=== PATIENT | male | born 1975 | race African-American/Black ===

== ENCOUNTER 2021-12-14 18:55 | Inpatient (IN) | payer OTHER, SELFPAY ==
[2021-12-14] VITALS (23 sets, daily range): BP systolic 119–155; BP diastolic 75–112; PULSE 111–120; RESP 16–65; TEMP 36.8; O2SAT 85–100
--- NOTE | ~2021-12-14 | CT_ITS ---
EXAMINATION: CTA abdomen pelvis DATE: 12/15/2021 17:28 INDICATION: EPIGASTRIC PAIN. R/O EMBOLUS. TECHNIQUE: Computed tomography (CT) of the abdomen and pelvis was performed with 100 mL Omnipaque-300 intravenous contrast. Automated exposure control and iterative reconstruction technique were employe d. The dose-length product was 1391.79 mGy-cm. Maximum intensity projections and 3-D reconstructions of the arteries were created by the technologist on a separate workstation COMPARISON: None. FINDINGS: Lower thorax: Redemonstration of multiple possible pulmonary arterial filling defects. Moderate bilat eral pleural effusions. Liver: Steatosis. Biliary/Gallbladder: Gallbladder is normal. No bile duct dilation. Pancreas: No mass or duct dilation. Spleen: Normal. Adrenals:No mass. Kidneys: No mass, stone, or hydronephrosis. Moderate bilateral perinephric stranding. GI tract: No small or large bowel dilation. Normal appendix. Diverticulosis without diverticulitis. Mesentery/Peritoneum: No ascites, mass, or free air. Retroperitoneum: No mass. No significant atherosclerotic calcification. No abdominal arterial aneurys m, dissection, or occlusion. No significant stenosis. No arterial embolus. Pelvis: Distended bladder with wall thickening, likely secondary to outlet compromise from prostatome verenice. Soft Tissues: Soft tissues and body wall unremarkable. Bones: No acute osseous finding. IMPRESSION: Normal angiographic findings in the abdomen, no evidence of arterial embolus. Reviewed, dictated and finalized at location K.
--- NOTE | ~2021-12-14 | CT_ITS ---
EXAMINATION: CTA chest PE protocol DATE: 12/14/2021 20:50 INDICATION: elevated d dimer TECHNIQUE: Computed tomography angiography (CTA) of the chest was performed with 100 mL Omnipaque-350 intravenous contrast timed to evaluate the pulmonary arteries. Coronal maximum intensity projection 3D-reconstructions were created by the technologist. The dose-length product (DLP) was 1113.48 mGy-cm . Automated exposure control and iterative reconstruction technique were employed. COMPARISON: None. FINDINGS: Study quality: Degraded by beam hardening artifact, respiratory motion, phase of contrast, and persis tent beam hardening artifact and phase/volume contrast issues in the repeat attempt, such that subseg mental and non-occlusive segmental emboli could be missed. Pulmonary arteries: Multiple nonocclusive segmental and subsegmental emboli are likely present bilate rally and involving all lobes. Thoracic aorta: Normal. Lung parenchyma and airways: Multifocal patchy groundglass opacities in the central upper lungs. Righ t basilar atelectasis. Thoracic inlet, axillae and chest wall: Bilateral gynecomastia, otherwise unremarkable. Mediastinum: Prominent bilateral hilar lymph nodes, larger on the right. Heart and pericardium: RV/LV ratio is 1.0. No pericardial effusion. Coronary artery calcifications: Absent. Pleura: Large volume bilateral pleural effusions. Upper abdomen: No significant finding. Bones: No acute osseous finding. IMPRESSION: Limited exam as described above. Within those constraints, CT findings are concerning for bilateral n onocclusive segmental and subsegmental emboli. Large clot burden is suspected. RV/LV ratio is 1 indic ating right heart strain. Large volume bilateral pleural effusions. Pulmonary opacities may reflect e dunia, infection, or sarcoid-related change. Results reported telephonically to Dr. England by Dr. Chavez at 9:40 PM on 12/14/2021. Reviewed, dictated and finalized at location K. IMPRESSION: Limited exam as described above. Within those constraints, CT findings are conc erning for bilateral nonocclusive segmental and subsegmental emboli. Large clot burden is suspected. RV/LV ratio is 1 indicating right heart strain. Large vol ume bilateral pleural effusions. Pulmonary opacities may reflect edema, infecti on, or sarcoid-related change. Results reported telephonically to Dr. England by Dr. Chavez at 9:40 PM on 12/14.
--- NOTE | ~2021-12-14 | XR_ITS ---
EXAMINATION: XR chest 1V portable Exam Date/Time: 12/14/2021 19:20 CDT HISTORY: SOB Comparison: None available. RESULT: Lines, tubes, and devices: None. Lungs and pleura: Diffuse reticular pattern, with indistinct vascular margins. Possible minimal bila teral costophrenic angle blunting. Cardiomediastinal silhouette: Stable cardiomediastinal silhouette. Other: No acute osseous or upper abdominal finding. IMPRESSION: Pulmonary findings may reflect pulmonary edema. Possible trace bilateral effusions. Infection not exc luded. Reviewed, dictated and finalized at location K. IMPRESSION: Pulmonary findings may reflect pulmonary edema. Possible trace bilateral effusi ons. Infection not excluded.
--- NOTE | 2021-12-14 19:11 | ED.ASTHMA ---
HPI - Asthma General Chief Complaint: Asthma Stated Complaint: SOB, HX ASTHMA Time Seen by Provider: 12/14/21 19:05 History of Present Illness HPI Narrative: 46-year-old male with history of asthma presenting to the emergency department for evaluation of worsening shortness of breath over the last 2 to 3 days. Patient states that today was the worst today. Patient did attempt his albuterol nebulizer without significant improvement. Patient reports some chest tightness and shortness of breath. Patient denies any chest pain. Patient has history of sarcoid. patient is non-smoker. Patient does have a longstanding history of asthma. Patient states his last asthma hospitalization was as a child. Patient denies ever needing to be intubated. Patient reports he is vaccinated against COVID and denies any recent COVID exposure. Related Data Home Medications Medication Instructions Recorded Confirmed albuterol sulfate 90 mcg/actuation 2 puff inhalation Q4H PRN 12/14/21 aerosol inhaler Shortness Of Breath Or Wheezing atenolol 50 mg-chlorthalidone 25 1 tablet PO DAILY 12/14/21 mg tablet cholecalciferol (vitamin D3) 1,250 1 cap PO WEEKLY 12/14/21 mcg (50,000 unit) capsule fluticasone 250 mcg-salmeterol 50 1 ea inhalation BID 12/14/21 12/14/21 mcg/dose blistr powdr for inhalation (Advair Diskus) Allergies Allergy/AdvReac Type Severity Reaction Status Date / Time No Known Allergies Allergy Verified 12/14/21 20:30 Review of Systems Review of Systems: CONSTITUTIONAL: Denies fever, chills, or sweats. EYES: Denies visual changes, redness, or discharge. ENT: Denies rhinorrhea, congestion, sore throat, or otalgia. CARDIOVASCULAR: Denies chest pain, palpitations, or edema. RESPIRATORY: Worsening shortness of breath with some associated wheeze at home GASTROINTESTINAL: Denies abdominal pain, nausea, vomiting, or diarrhea. GENITOURINARY: Denies dysuria or hematuria. SKIN: Denies rash or itching. MUSCULOSKELETAL: Denies back pain, joint pain, or myalgia. NEUROLOGIC: Denies headache, numbness, or weakness. Exam Narrative: APPEARANCE: Anxious appearing HEAD: normocephalic, atraumatic. EYES: PERRLA/EOMI, conjunctivae clear. NOSE: Normal no drainage NECK: Supple. No adenopathy, no masses. RESPIRATORY: Minimal wheezing on exam. Respirations labored. CARDIOVASCULAR: Regular rate and rhythm without murmurs rubs or gallops. ABDOMINAL: Soft, nontender, nondistended, normal bowel sounds MUSCULOSKELETAL: Moves all extremities. Strength/ROM intact, No edema, No calf tenderness. NEURO: Alert. Cranial nerves II through XII intact. Grossly intact SKIN: Warm, dry. Normal Color Course Course Emergency Course: Patient's D-dimer was elevated at 2.63. CT was concerning for pulmonary embolism. Radiology states that this was a technically limited study. Patient has no contraindications to heparin. Patient was started on heparin bolus and infusion. Patient also has a significant elevated BNP. No elevation in his troponin. Patient does have an elevated bated hemoglobin at 19.6. Patient was discussed with the hospitalist and patient was accepted for admission. Suspect polycythemia at this time, patient will have inpatient evaluation by heme-onc. Patient admitted to IMU. Patient was updated on the results of the work-up and plan for treatment. All questions and concerns were addressed. Patient was stable at time of admission. Vital Signs Vital signs: Vital Signs Temperature 98.2 F 12/14/21 19:00 Pulse Rate 115 H 12/14/21 19:00 Respiratory Rate 22 H 12/14/21 19:00 Blood Pressure 132/85 12/14/21 19:00 Pulse Oximetry 85 L 12/14/21 19:00 Oxygen Delivery Room Air 12/14/21 19:00 Temperature 98.2 F 12/14/21 19:00 Pulse Rate 117 H 12/14/21 22:15 Respiratory Rate 21 H 12/14/21 22:15 Blood Pressure 122/80 12/14/21 22:15 Pulse Oximetry 95 12/14/21 22:15 Oxygen Delivery Room Air 12/14/21 19:00 Oxygen
[2021-12-14] MEDS: methylPREDNISolone SOD SUCC 125 MG VIAL IV PUSH (19:22)
[2021-12-14] MEDS: MAGNESIUM SULF 1 GM/D5W 100 ML 1 GM/100 ML BAG IVPB (19:24)
[2021-12-14 19:28] LABS: Basophils Percent Auto 0.8 % (0.2-1.2); Eosinophils Percent Auto 0.6 % (0-4.4); Hemoglobin 19.6 g/dL (14.0-18.0); Immature Granulocyte Absolute 0.03 K/mm3 (0.00-0.031); Immature Granulocyte Percent A 0.8 % (0-0.5); Lymphocytes Absolute Auto 1.33 K/mm3 (0.9-3.2); Lymphocytes Percent Auto 36.9 % (18.3-44.2); Mean Corpuscular HGB Conc 33.2 g/dl (32-36); Mean Corpuscular Hemoglobin 28.9 pg (26-34); Mean Corpuscular Volume 86.9 fl (80-100); Mean Platelet Volume 12.4 fl (7.4-10.4); Monocytes Percent Auto 55.6 % (2.6-8.5); Neutrophils Absolute Auto 0.2 K/mm3 (1.3-6.7); Neutrophils Percent Auto 5.3 % (45.5-73.1); Platelet Count Result 121 k/mm3 (150-375); Red Blood Count 6.79 M/mm3 (4.6-6.20); Red Cell Distribution Width 13.6 % (11.5-14.5); White Blood Count 3.6 K/mm3 (4.5-10.0)
[2021-12-14] MEDS: IPRATROPIUM BR 0.02% INH SOLN 0.5 MG/2.5 ML VIAL 2 MG INHALATION (19:29)
[2021-12-14] MEDS: ALBUTEROL SULFATE NEB 2.5 MG/3 ML INH 10 MG INHALATION (19:29)
[2021-12-14 19:37] LABS: Alanine Aminotransferase 24 U/L (6-50); Albumin Level 4.1 g/dL (3.5-5.1); Alkaline Phosphatase 66 U/L (38-126); Anion Gap 11 mmol/L (8-16); Aspartate Amino Transferase 26 U/L (17-59); Bilirubin,Total 0.9 mg/dL (0.2-1.3); Blood Urea Nitrogen 37 mg/dL (9-20); Calcium 8.7 mg/dL (8.4-10.2); Carbon Dioxide 28 mmol/L (22-30); Chloride 95 mmol/L (98-107); Estimated CRCL calculation 58 ml/min; Estimated Glomerular Filt Rate 50; Glucose 153 mg/dL (65-110); Potassium 3.5 mmol/L (3.4-5.0); Sodium 134 mmol/L (137-145)
[2021-12-14 20:01] LABS: D Dimer 2.63 ug/mL (<0.48)
[2021-12-14 20:15] LABS: NT Pro B Type Natriuretic Pept 2240 pg/mL (5-100); Troponin I 0.015 ng/mL (0.000-0.034)
--- NOTE | 2021-12-14 20:17 | ECG_ITS ---
Measurements Intervals [place] Rate: 115 P: 43 DE: 139 QRS: 29 QRSD: 86 T: 17 QT: 315 QTc: 437 Interpretive Statements SINUS TACHYCARDIA NONSPECIFIC T-WAVE ABNORMALITY- INFERIOR LEADS BASELINE ARTIFACT- I, II, III ABNORMAL ECG Electronically Signed On 12-15-2021 7:34:49 CDT by Nakul Lozano D.O.
[2021-12-14 20:37] LABS: SARS-CoV-2 RNA PCR Negative
--- NOTE | 2021-12-14 21:47 | PM.IMHP ---
H&P: HPI History of Present Illness Date/Time: 12/14/21 21:47 Chief Complaint: epigastric pain Narrative: this is a 46-year-old male with past medical history significant for psycho it in remission, asthma. patient presents to the emergency room due to pain with deep inspiration and pain in the epigastric area worse with deep inspiration. Patient denies any cough, any hematemesis, any hemoptysis, no nausea, no vomiting, no diarrhea, has had some shortness of breath, no fevers, no rigors, no chills no calves pain,patient has been feeling like this for the last 2 days or so he initially attributed to eating some takeout food at his job. preliminary workup was significant for CT angiogram of the chest with acute pulmonary embolism, is CT of abdomen and pelvis show no acute abnormality, lab work was significant for hemoglobin of 19 hematocrit 59, BUN 37 creatinine 1.8 brain atretic peptide was 2240. patient is being admitted for further evaluation, management and treatment. Review of Systems Review of Systems: Epigastric pain, shortness of breath. Constitutional: Constitutional: Denies body ache(s), Denies chills, Denies fatigue, Denies fever(s), Denies malaise, Denies night sweats and Denies weakness Eyes: Eyes: Denies change in vision ENT: Denies dysphagia, Denies vertigo, Denies dizziness, Denies nasal congestion, Denies nasal discharge, Denies nasal obstruction, Denies odynophagia and Denies disequilibrium Cardiovascular: Cardiovascular: Denies chest pain, Denies syncope, Denies pedal edema, Denies edema, Denies irregular heart rhythm, Denies leg edema, Denies lightheadedness, Denies radiating jaw, neck or arm pain, Denies palpitations, Reports dyspnea and Reports dyspnea on exertion Respiratory: Respiratory: Denies cough and Reports pain on inspiration Gastrointestinal: Gastrointestinal: Reports abdominal pain ( epigastric), Denies dyspepsia and Denies heartburn Genitourinary: Genitourinary: Denies dysuria Musculoskeletal: Musculoskeletal: Denies arthralgias, Denies joint swelling and Denies muscle weakness Integumentary/Breasts: Skin/Breast: Denies rash Neurologic: Denies vertigo, Denies dizziness, Denies focal weakness and Denies Sensory deficit (Neuro) Psychiatric: Psychiatric: Reports no additional psychiatric complaints and Reports as per HPI Endocrine: Endocrine: Denies cold intolerance, Denies fatigue, Denies flushing, Denies heat intolerance, Denies polyphagia, Denies polydipsia and Denies palpitations Allergic/Immunologic: Allergic/Immunologic: Reports no additional allergic/immunologic complaints and Reports as per HPI [facility] Family History Family History (Updated 12/15/21 @ 00:35 by Rosamaria Juan RN) Sibling Hypertension Mother Hypertension Social History Social History Second hand tobacco smoke exposure: Yes Alcohol intake: current Drinks per week: 3 Substance use: never Spiritual care concerns: No Meds Home Medications and Allergies Home Medications Medication Instructions Recorded Confirmed Type albuterol sulfate 90 mcg/actuation 2 puff inhalation Q4H PRN 12/14/21 12/15/21 History aerosol inhaler Shortness Of Breath Or Wheezing atenolol 50 mg-chlorthalidone 25 1 tablet PO DAILY 12/14/21 12/15/21 History mg tablet cholecalciferol (vitamin D3) 1,250 1 cap PO WEEKLY 12/14/21 12/15/21 History mcg (50,000 unit) capsule fluticasone 250 mcg-salmeterol 50 1 ea inhalation BID 12/14/21 12/14/21 History mcg/dose blistr powdr for inhalation (Advair Diskus) Nitrous Oxide 2 tablet PO DAILY 12/15/21 12/15/21 History boron 6 mg tablet 6 mg PO DAILY 12/15/21 12/15/21 History Allergies Allergy/AdvReac Type Severity Reaction Status Date / Time No Known Allergies Allergy Verified 12/14/21 20:30 Vital Signs Vital Signs - 24 hr 12/14/21 19:00 12/14/21 19:02 12/14/21 19:03 Temperature 98.2 F Pulse Rate 115 H 114 H Respiratory Rate 22 H 22 H 20
[2021-12-14] MEDS: HEPARIN SODIUM 5,000 UNITS/ML VIAL 8500 UNITS IV PUSH (22:26)
[2021-12-14] MEDS: HEPARIN SOD/D5W 100 UNITS/ML 25,000 UNITS/250 ML BAG 15 UNITS IV CONT (22:27)
[2021-12-15] VITALS (26 sets, daily range): BP systolic 115–139; BP diastolic 68–93; PULSE 89–123; RESP 18–32; TEMP 35.9–37.1; O2SAT 90–97; BMI 34.4
--- NOTE | 2021-12-15 | ECHO_ITS ---
Patient Info Name: Brian Davey Age: 46 years : 1975 Gender: Male Ht: 71 in Wt: 229 lbs BSA: 2.31 m2 HR: 83 bpm BP: 128 / 86 mmHg Exam Date: 12/15/2021 8:14 AM Exam Location: [facility] Patient Status: Outpatient Admit Date: 12/14/2021 Staff Ordering Physician: Nel Sylvester MD Public Bath Attendant: Felix Ace, JEANNE, RT Attending Provider: Nel Sylvester MD Referring Physician: Higinio CANTRELL; Exam Type: CA echo doppler color flow Study Info Indications I26.99 - Other pulmonary embolism without acute cor pulmonale Complete two-dimensional, color flow and Doppler transthoracic echocardiogram is performed. Strain analysis performed. Summary 1. Complete two-dimensional, color flow and Doppler transthoracic echocardiogram is performed. 2. Left ventricular chamber dimension is normal. 3. Left ventricular systolic function is normal, estimated at 65-70%. 4. There is mildly increased left ventricular wall thickness. 5. The left ventricular diastolic function is grade I diastolic dysfunction. 6. Right ventricular chamber dimension is normal. 7. Right ventricular systolic function is normal. 8. Left atrial chamber dimension is normal. 9. Right atrial chamber dimension is normal. Left Ventricle Left ventricular chamber dimension is normal. Left ventricular systolic function is normal, estimated at 65-70%. There is mildly increased left ventricular wall thickness. Left ventricular septal wall motion is normal. The left ventricular diastolic function is grade I diastolic dysfunction. Right Ventricle Right ventricular chamber dimension is normal. Right ventricular systolic function is normal. Left Atria Left atrial chamber dimension is normal. Right Atria Right atrial chamber dimension is normal. Aortic Valve The aortic valve is trileaflet. There is no aortic valve sclerosis. There is no aortic valve stenosis. There is no aortic valve regurgitation. Pulmonic Valve The pulmonic valve is normal. There is no pulmonic valve stenosis. There is no pulmonic regurgitation. Mitral Valve The mitral valve has normal leaflets. There is no mitral valve stenosis. There is no mitral valve regurgitation. Tricuspid Valve The tricuspid valve leaflets are normal. There is no significant tricuspid valve stenosis. There is no tricuspid valve regurgitation. Pericardium/Pleural The pericardium appears normal. There is no pericardial effusion. Aorta The aortic root size at the sinus of Valsalva is normal. The prox ascending aorta size is normal. Left Ventricular Outflow Tract Name Value Normal LVOT 2D LVOT Diameter 2.3 cm LVOT Doppler LVOT Peak Gradient 3 mmHg LVOT Mean Gradient 2 mmHg LVOT VTI 12 cm LVOT VTI/AV VTI Ratio 0.9 LVOT Stroke Volume 50 ml LVOT CO 5.4 l/min LVOT CI 2.3 l/min/m2 Mitral Valve
[2021-12-15 00:07] LABS: INR 1.2; Partial Thromboplastin Time 29.1 SECONDS (22.3-36.8); Prothrombin Time 14.3 Seconds (11.1-14.7)
--- NOTE | 2021-12-15 00:43 | PC.NURSE ---
This patient, Brian Davey, was admitted to IMU Room 211-01. Patient/family oriented to hospital policies and general routines including ID bracelet, bed and alarms, visiting hours, pain management, procedures, bathroom and other care routines, personal items, smoking policy, room service/diet, and visiting hours. Information on how to activate the Rapid Response Team has been discussed. Patient/Family are encouraged to report perceived risks to care and to ask questions if they do not understand what they are told or what they should do.
[2021-12-15] MEDS: traMADol HCL (*CRX) 50 MG TABLET PO ×2 (04:12→12:25)
[2021-12-15 05:25] LABS: Basophils Percent Auto 0.7 % (0.2-1.2); Hematocrit 56.1 % (42.0-52.0); Hemoglobin 18.9 g/dL (14.0-18.0); Lymphocytes Absolute Auto 0.68 K/mm3 (0.9-3.2); Lymphocytes Percent Auto 46.3 % (18.3-44.2); Mean Corpuscular HGB Conc 33.7 g/dl (32-36); Mean Corpuscular Hemoglobin 29.1 pg (26-34); Mean Corpuscular Volume 86.4 fl (80-100); Mean Platelet Volume 12.5 fl (7.4-10.4); Monocytes Absolute Auto 0.7 K/mm3 (0.1-0.6); Monocytes Percent Auto 44.9 % (2.6-8.5); Neutrophils Absolute Auto 0.1 K/mm3 (1.3-6.7); Neutrophils Percent Auto 8.1 % (45.5-73.1); Platelet Count Result 115 k/mm3 (150-375); Red Blood Count 6.49 M/mm3 (4.6-6.20); Red Cell Distribution Width 13.6 % (11.5-14.5)
[2021-12-15 05:29] LABS: White Blood Count 1.5 K/mm3 (4.5-10.0)
[2021-12-15 05:31] LABS: Partial Thromboplastin Time 80.3 SECONDS (22.3-36.8)
[2021-12-15 05:32] LABS: Anion Gap 11 mmol/L (8-16); Blood Urea Nitrogen 38 mg/dL (9-20); Calcium 8.6 mg/dL (8.4-10.2); Carbon Dioxide 24 mmol/L (22-30); Chloride 95 mmol/L (98-107); Estimated CRCL calculation 71 ml/min; Estimated Glomerular Filt Rate > 60; Glucose 196 mg/dL (65-110); Potassium 3.7 mmol/L (3.4-5.0); Sodium 130 mmol/L (137-145)
[2021-12-15] MEDS: IPRATROPIUM BR 0.02% INH SOLN 0.5 MG/2.5 ML VIAL INHALATION ×3 (08:41→20:46)
[2021-12-15] MEDS: ALBUTEROL SULFATE NEB 2.5 MG/3 ML INH INHALATION ×3 (08:41→20:46)
[2021-12-15] MEDS: FLUTICASONE/SALMETEROL 115-21 MCG INHALER 1 PUFF 2 PUFF INHALATION ×2 (08:41→20:47)
[2021-12-15] MEDS: atenoloL 50 MG TABLET PO (08:56)
[2021-12-15] MEDS: CHLORTHALIDONE 25 MG TABLET PO (08:56)
[2021-12-15 09:55] LABS: Basophils Percent Auto 0.4 % (0.2-1.2); Hematocrit 52.4 % (42.0-52.0); Hemoglobin 17.8 g/dL (14.0-18.0); Lymphocytes Absolute Auto 0.93 K/mm3 (0.9-3.2); Lymphocytes Percent Auto 35.9 % (18.3-44.2); Mean Corpuscular Hemoglobin 29.1 pg (26-34); Mean Corpuscular Volume 85.6 fl (80-100); Mean Platelet Volume 12.9 fl (7.4-10.4); Monocytes Absolute Auto 1.5 K/mm3 (0.1-0.6); Monocytes Percent Auto 58.7 % (2.6-8.5); Neutrophils Absolute Auto 0.1 K/mm3 (1.3-6.7); Platelet Count Result 124 k/mm3 (150-375); Red Blood Count 6.12 M/mm3 (4.6-6.20); Red Cell Distribution Width 13.1 % (11.5-14.5); White Blood Count 2.6 K/mm3 (4.5-10.0)
--- NOTE | 2021-12-15 13:43 | PM.IMPN ---
Progress Note: A&P Assessment and Plan (1) Pulmonary embolism: Code(s): I26.99 - Other pulmonary embolism without acute cor pulmonale Status: Acute Assessment and Plan: IV heparin (2) Erythrocytosis: Code(s): D75.1 - Secondary polycythemia Status: Acute Assessment and Plan: ? Etiology Denies obstructive sleep apnea. (3) Epigastric abdominal pain: Code(s): R10.13 - Epigastric pain Status: Acute Assessment and Plan: Likely pleuritic chest pain. (4) Asthma: Code(s): J45.909 - Unspecified asthma, uncomplicated Status: Acute Assessment and Plan: IV Solu-Medrol, bronchodilators. Subjective Date/time seen: 12/15/21 13:43 Still having shortness of breath. Still requiring nasal cannula oxygen Exam Narrative: General: alert and oriented Psych: appropriate mood nad affect Eyes: PERRLA Neck: Trachea midline, no new lesions Skin: no changes Lungs: Minimal wheeze Cardiac: Normal S1,S2, no MGR ABD: soft, nd, nt, nbs Ext: no new lesions, no cce Vasc: Pulses intact Objective Data Vital Signs Vital Signs: Vital Signs - 24 hr 12/14/21 19:00 12/14/21 19:02 12/14/21 19:03 Temperature 98.2 F Pulse Rate 115 H 114 H Respiratory Rate 22 H 22 H 20 Blood Pressure 132/85 Pulse Oximetry 85 L 88 L 94 Oxygen Delivery Room Air Oxygen Flow Rate 2 4 12/14/21 19:30 12/14/21 20:29 12/14/21 19:08 Temperature Pulse Rate 115 H 113 H 114 H Respiratory Rate 19 23 H Blood Pressure 119/86 Pulse Oximetry 98 Oxygen Delivery Oxygen Flow Rate 12/14/21 19:09 12/14/21 19:15 12/14/21 19:30 Temperature Pulse Rate 114 H 117 H 112 H Respiratory Rate 23 H 24 H 38 H Blood Pressure Pulse Oximetry 97 97 96 Oxygen Delivery Oxygen Flow Rate 12/14/21 19:45 12/14/21 20:00 12/14/21 20:01 Temperature Pulse Rate 115 H 111 H 115 H Respiratory Rate 20 22 H 21 H Blood Pressure 125/99 H Pulse Oximetry 98 100 Oxygen Delivery Oxygen Flow Rate 12/14/21 20:15 12/14/21 19:35 12/14/21 20:30 Temperature Pulse Rate 117 H 117 H Respiratory Rate 35 H 43 H Blood Pressure Pulse Oximetry 100 95 Oxygen Delivery Oxygen Flow Rate 4 12/14/21 20:51 12/14/21 20:52 12/14/21 21:00 Temperature Pulse Rate 119 H 120 H 119 H Respiratory Rate 31 H 18 22 H Blood Pressure 132/75 Pulse Oximetry 87 L 90 94 Oxygen Delivery Oxygen Flow Rate 12/14/21 21:01 12/14/21 21:15 12/14/21 21:41 Temperature Pulse Rate 117 H 116 H Respiratory Rate 16 23 H 65 H Blood Pressure 155/112 H Pulse Oximetry 94 95 Oxygen Delivery Oxygen Flow Rate 12/14/21 21:45 12/14/21 22:00 12/14/21 22:15 Temperature Pulse Rate 118 H 114 H 117 H Respiratory Rate 25 H 22 H 21 H Blood Pressure 122/80 Pulse Oximetry 97 95 95 Oxygen Delivery Oxygen Flow Rate 12/15/21 00:05 12/15/21 00:15 12/15/21 00:30 Temperature 96.6 F L Pulse Rate 119 H 120 H Respiratory Rate 22 H 20 Blood Pressure 129/93 H 126/80 Pulse Oximetry 94 95 95 Oxygen Delivery Nasal Cannula Oxygen Flow Rate 2.5 12/15/21 00:00 12/15/21 02:00 12/15/21 03:30 Temperature 98.2 F Pulse Rate 121 H 120 H 116 H Respiratory Rate 20 Blood Pressure 128/86 Pulse Oximetry 94 Oxygen Delivery Oxygen Flow Rate 12/15/21 03:45 12/15/21 04:00 12/15/21 08:00 Temperature 98.6 F Pulse Rate 123 H 100 Respiratory Rate 28 H Blood Pressure 124/86 Pulse Oximetry 94 90 Oxygen Delivery Nasal Cannula Oxygen Flow Rate 5 12/15/21 08:34 12/15/21 08:43 12/15/21 08:44 Temperature Pulse Rate 103 H 106 H 102 H Respiratory Rate 18 18 Blood Pressure Pulse Oximetry 96 Oxygen Delivery Nasal Cannula Oxygen Flow Rate 5 12/15/21 08:00 12/15/21 08:00 12/15/21 10:00 Temperature Pulse Rate 100 96 Respiratory Rate Blood Pressure Pulse Oximetry 94 Oxygen Delivery Nasal Cannula
[2021-12-15] MEDS: HEPARIN SOD/D5W 100 UNITS/ML 25,000 UNITS/250 ML BAG 15 UNITS IV CONT (16:26)
[2021-12-15] MEDS: methylPREDNISolone SOD SUCC 40 MG VIAL IV PUSH (16:27)
[2021-12-16] VITALS (23 sets, daily range): BP systolic 126–133; BP diastolic 77–90; PULSE 66–104; RESP 18–32; TEMP 36.7–37.6; O2SAT 92–98
[2021-12-16] MEDS: ZOLPIDEM TARTRATE (*CRX) 5 MG TABLET PO ×2 (00:39→21:05)
[2021-12-16] MEDS: IPRATROPIUM BR 0.02% INH SOLN 0.5 MG/2.5 ML VIAL INHALATION ×4 (02:10→20:49)
[2021-12-16] MEDS: ALBUTEROL SULFATE NEB 2.5 MG/3 ML INH INHALATION ×4 (02:10→20:49)
[2021-12-16 06:45] LABS: Anion Gap 3 mmol/L (8-16); Blood Urea Nitrogen 54 mg/dL (9-20); Calcium 7.8 mg/dL (8.4-10.2); Carbon Dioxide 28 mmol/L (22-30); Chloride 95 mmol/L (98-107); Estimated CRCL calculation 67 ml/min; Estimated Glomerular Filt Rate 57; Glucose 137 mg/dL (65-110); Potassium 3.7 mmol/L (3.4-5.0); Sodium 126 mmol/L (137-145)
[2021-12-16 06:47] LABS: Hematocrit 48.9 % (42.0-52.0); Hemoglobin 16.6 g/dL (14.0-18.0); Mean Corpuscular HGB Conc 33.9 g/dl (32-36); Mean Corpuscular Hemoglobin 29.2 pg (26-34); Mean Corpuscular Volume 86.1 fl (80-100); Mean Platelet Volume 12.5 fl (7.4-10.4); Platelet Count Result 118 k/mm3 (150-375); Red Blood Count 5.68 M/mm3 (4.6-6.20); White Blood Count 3.5 K/mm3 (4.5-10.0)
[2021-12-16 06:52] LABS: Partial Thromboplastin Time 52.7 SECONDS (22.3-36.8)
[2021-12-16] MEDS: FLUTICASONE/SALMETEROL 115-21 MCG INHALER 1 PUFF 2 PUFF INHALATION ×2 (08:13→20:49)
[2021-12-16] MEDS: HEPARIN SODIUM 5,000 UNITS/ML VIAL 7000 UNITS IV PUSH (09:05)
[2021-12-16] MEDS: atenoloL 50 MG TABLET PO (09:05)
[2021-12-16] MEDS: CHLORTHALIDONE 25 MG TABLET PO (09:05)
[2021-12-16 10:38] LABS: Basophils Percent Auto 0.3 % (0.2-1.2); Immature Granulocyte Absolute 0.01 K/mm3 (0.00-0.031); Immature Granulocyte Percent A 0.3 % (0-0.5); Lymphocytes Absolute Auto 0.89 K/mm3 (0.9-3.2); Lymphocytes Percent Auto 25.4 % (18.3-44.2); Monocytes Absolute Auto 2.5 K/mm3 (0.1-0.6); Monocytes Percent Auto 71.5 % (2.6-8.5); Neutrophils Absolute Auto 0.1 K/mm3 (1.3-6.7); Neutrophils Percent Auto 2.5 % (45.5-73.1)
[2021-12-16] MEDS: traMADol HCL (*CRX) 50 MG TABLET PO ×2 (11:58→21:04)
[2021-12-16] MEDS: LACTATED RINGERS 1,000 ML 75 ML IV CONT (11:59)
--- NOTE | 2021-12-16 12:24 | PCNSR ---
On 12/16/21, the student, Bailee Herbert, provided care and completed [facility] documentation on this patient. I have reviewed the student's documentation and agree with the findings.
--- NOTE | 2021-12-16 12:43 | PM.IMPN ---
Progress Note: A&P Assessment and Plan (1) Pulmonary embolism: Code(s): I26.99 - Other pulmonary embolism without acute cor pulmonale Status: Acute Assessment and Plan: patient has been started on heparin drip will need anticoagulation going home continue to monitor echocardiogram noted, no significant right heart strain (2) Erythrocytosis: Code(s): D75.1 - Secondary polycythemia Status: Acute Assessment and Plan: continue to monitor Hematology-Oncology consult follow-up in outpatient setting Monitor (3) Epigastric abdominal pain: Code(s): R10.13 - Epigastric pain Status: Acute Assessment and Plan: Improved (4) Asthma: Code(s): J45.909 - Unspecified asthma, uncomplicated Status: Acute Assessment and Plan: continue home meds nebulizer treatments q.6 hours Patient does have a wheeze, will start on low-dose steroid Subjective Date/time seen: 12/16/21 12:43 Still short of breath. Denies any chest pain Exam Narrative: General: alert and oriented Psych: appropriate mood nad affect Eyes: PERRLA Neck: Trachea midline, no new lesions Skin: no changes Lungs: Minimal wheeze Cardiac: Normal S1,S2, no MGR ABD: soft, nd, nt, nbs Ext: no new lesions, no cce Vasc: Pulses intact Const: General: comfortable, no acute distress, well developed, alert and awake Nutritional Appearance: average body habitus Orientation/consciousness: patient oriented x3 Other: well-appearing HENMT: Head: normal to inspection, normocephalic and atraumatic Ears: hearing grossly normal bilaterally Face and sinus: normal facial exam Eyes: General: appearance normal, both eyes and all related structures Pupils: Equal, round and reactive pupils present EOM: EOMs intact bilaterally Neck: Neck: full ROM, no lymphadenopathy and no JVD Thyroid: thyroid normal Lymphatic: no lymphadenopathy noted Resp: Effort & Inspection: normal respiratory effort and able to speak in complete sentences Auscultation: clear to auscultation bilaterally Cardio: Jugular venous distension: no JVD Rate: regular rate Rhythm: regular rhythm Heart sounds: S1 normal heart sound present and S2 normal heart sound present : General: Yes deferred Skin: Rashes: no rashes Wounds: no wounds Neuro: General: patient oriented x3 and CN's II-XI intact bilaterally Cranial nerves: Yes CN's II-XII intact bilaterally and Yes Equal, round and reactive pupils present Cognition (Neuro): normal cognition Speech: normal speech Gait exam (Neuro): Normal gait present Motor exam (neuro): 5/5 motor strength present throughout Sensory Exam: No Sensory deficit (Neuro) Extrem: General: normal to inspection, full ROM, no joint enlargement and no pedal edema Objective Data Vital Signs Vital Signs: Vital Signs - 24 hr 12/15/21 13:50 12/15/21 13:58 12/15/21 16:00 Temperature 98.1 F Pulse Rate 90 89 103 H Respiratory Rate 18 18 20 Blood Pressure 115/87 Pulse Oximetry 92 Oxygen Delivery Oxygen Flow Rate 12/15/21 16:00 12/15/21 16:00 12/15/21 14:00 Temperature Pulse Rate 92 93 Respiratory Rate Blood Pressure Pulse Oximetry 94 Oxygen Delivery Nasal Cannula Oxygen Flow Rate 3 12/15/21 18:00 12/15/21 20:49 12/15/21 20:51 Temperature Pulse Rate 91 98 Respiratory Rate 20 Blood Pressure Pulse Oximetry 97 Oxygen Delivery Nasal Cannula Oxygen Flow Rate 4 12/15/21 20:00 12/15/21 20:00 12/15/21 21:00 Temperature 97.9 F Pulse Rate 98 97 101 H Respiratory Rate 20 22 H 18 Blood Pressure 125/68 Pulse Oximetry 94 92 Oxygen Delivery Nasal Cannula Oxygen Flow Rate 4 12/15/21 20:00 12/15/21 22:00 12/15/21 23:34 Temperature 98.8 F Pulse Rate 101 H 104 H 97 Respiratory Rate 20 Blood Pressure 139/84 Pulse Oximetry 92 Oxygen Delivery Oxygen Flow Rate 12/16/21 00:00 12/16/21 00:00 12/16/21 02:00 [facility]
[2021-12-16] MEDS: HEPARIN SOD/D5W 100 UNITS/ML 25,000 UNITS/250 ML BAG 18 UNITS IV CONT (13:02)
[2021-12-16 15:11] LABS: Partial Thromboplastin Time 117.3 SECONDS (22.3-36.8)
--- NOTE | 2021-12-16 18:04 | PDONCCN ---
HPI - Date of Consult Date/Time: 12/16/21 18:04 Requesting Physician: Nel Sylvester MD Primary Care Provider: PHYSICIAN NOT ON STAFF - Consult Narrative Reason for consult: Hypercoagulable state Narrative: Brian Davey is a 46 year old male who has been in good health except history of sarcoidosis came into the hospital with sudden onset of shortness of breath started about 2-3 days ago without any chest discomfort. CTA chest showed bilateral nonocclusive segmental and subsegmental emboli with large clot burden suspected with right heart strain. There was large volume of bilateral pleural effusion. There was pulmonary opacity may reflect edema, infection or sarcoid related changes. CT abdomen and pelvis was performed due to epigastric pain that showed hepatic steatosis and spleen was normal. Patient denies any previous history of thromboembolic events. Other labs showed neutropenia with WBC count of 1.5 and elevated hematocrit of 56.1. Platelets were low at 115,000. He denies any recent travel, injury and surgery. He also denies any recent heparin exposure. There is the family history of various malignancies but nothing in immediate family. He denies any other complaints. Review of Systems - Review of Systems All systems reviewed & are unremarkable except as noted in HPI and bel - Neurologic Denies vertigo, Denies syncope, Denies focal weakness, Denies sensory deficit, Denies disequilibrium, Denies weakness PMFSH Family History: Family History (Last Updated 12/15/21 @ 00:35 by Rosamaria Juan RN) Sibling Hypertension Mother Hypertension - Social History Social History: Social History Alcohol Use: Alcohol intake: current Drinks per week: 3 Substance Use: Substance use: never Others: Spiritual care concerns: No Smoking Status: Second hand tobacco smoke exposure: Yes Meds Home Medications Medication Instructions Recorded Confirmed Type albuterol sulfate 90 mcg/actuation 2 puff inhalation Q4H PRN 12/14/21 12/15/21 History aerosol inhaler Shortness Of Breath Or Wheezing atenolol 50 mg-chlorthalidone 25 1 tablet PO DAILY 12/14/21 12/15/21 History mg tablet cholecalciferol (vitamin D3) 1,250 1 cap PO WEEKLY 12/14/21 12/15/21 History mcg (50,000 unit) capsule fluticasone 250 mcg-salmeterol 50 1 ea inhalation BID 12/14/21 12/14/21 History mcg/dose blistr powdr for inhalation (Advair Diskus) Nitrous Oxide 2 tablet PO DAILY 12/15/21 12/15/21 History boron 6 mg tablet 6 mg PO DAILY 12/15/21 12/15/21 History Allergies Allergy/AdvReac Type Severity Reaction Status Date / Time No Known Allergies Allergy Verified 12/14/21 20:30 Results - Labs CBC & Chem 7: 12/16/21 06:29 12/16/21 06:29 Labs: Short CBC 12/16/21 Range/Units 06:29 WBC 3.5 L (4.5-10.0) K/mm3 Hgb 16.6 (14.0-18.0) g/dL Hct 48.9 (42.0-52.0) % Plt Count 118 L (150-375) k/mm3 BMP 12/16/21 06:29 Sodium 126 L Potassium 3.7 Chloride 95 L Carbon Dioxide 28 BUN 54 H D Creatinine 1.60 H Glucose 137 H Calcium 7.8 L Assessment and Plan - Additional Plan Unprovoked pulmonary embolism. Patient is a pleasant 46-year-old male with history of sarcoidosis came into medical attention with sudden onset of shortness of breath. CT abdomen showed hepatic steatosis with normal spleen size. No evidence of arterial embolus. CT chest showed bilateral nonocclusive pulmonary embolism with large clot burden along with large volume bilateral pleural effusion. There was some sarcoid related changes as well. Labs showed pancytopenia. Differential showed elevated monocyte count. Peripheral smear showed significant neutropenia with previous dominant monocytes and lymphocyte count. Creatinine was elevated at 1.6. Total bilirubin was normal. Monocytosis likely sign of underlying infection rather than malignan
[2021-12-16 22:12] LABS: Lactate Dehydrogenase 454 U/L (313-618)
[2021-12-16 22:16] LABS: Partial Thromboplastin Time 81.7 SECONDS (22.3-36.8)
[2021-12-16 23:21] LABS: Folic Acid 7.7 ng/mL (2.76->20)
[2021-12-17] VITALS (26 sets, daily range): BP systolic 117–144; BP diastolic 49–86; PULSE 63–101; RESP 16–28; TEMP 36.3–37.4; O2SAT 92–99
[2021-12-17] MEDS: IPRATROPIUM BR 0.02% INH SOLN 0.5 MG/2.5 ML VIAL INHALATION ×4 (02:34→20:44)
[2021-12-17] MEDS: ALBUTEROL SULFATE NEB 2.5 MG/3 ML INH INHALATION ×4 (02:34→20:43)
[2021-12-17] MEDS: LACTATED RINGERS 1,000 ML 75 ML IV CONT ×2 (03:23→17:42)
[2021-12-17] MEDS: HEPARIN SOD/D5W 100 UNITS/ML 25,000 UNITS/250 ML BAG 16 UNITS IV CONT (07:15)
[2021-12-17 08:31] LABS: Partial Thromboplastin Time 64.1 SECONDS (22.3-36.8)
[2021-12-17] MEDS: FLUTICASONE/SALMETEROL 115-21 MCG INHALER 1 PUFF 2 PUFF INHALATION ×2 (09:10→20:43)
[2021-12-17] MEDS: atenoloL 50 MG TABLET PO (10:23)
[2021-12-17] MEDS: predniSONE 20 MG TABLET 40 MG PO (10:24)
[2021-12-17] MEDS: CHLORTHALIDONE 25 MG TABLET PO (10:25)
[2021-12-17] MEDS: traMADol HCL (*CRX) 50 MG TABLET PO ×3 (10:53→23:42)
[2021-12-17] MEDS: HEPARIN SODIUM 5,000 UNITS/ML VIAL 3500 UNITS IV PUSH (10:53)
[2021-12-17 11:22] LABS: Basophils Percent Auto 0.6 % (0.2-1.2); Eosinophils Absolute Auto 0.1 K/mm3 (0-0.3); Eosinophils Percent Auto 1.1 % (0-4.4); Hematocrit 45.8 % (42.0-52.0); Lymphocytes Absolute Auto 1.36 K/mm3 (0.9-3.2); Lymphocytes Percent Auto 25.8 % (18.3-44.2); Mean Corpuscular HGB Conc 32.8 g/dl (32-36); Mean Corpuscular Hemoglobin 29.1 pg (26-34); Mean Corpuscular Volume 88.9 fl (80-100); Mean Platelet Volume 12.6 fl (7.4-10.4); Monocytes Absolute Auto 3.4 K/mm3 (0.1-0.6); Monocytes Percent Auto 65.1 % (2.6-8.5); Neutrophils Absolute Auto 0.4 K/mm3 (1.3-6.7); Neutrophils Percent Auto 7.4 % (45.5-73.1); Platelet Count Result 110 k/mm3 (150-375); Red Blood Count 5.15 M/mm3 (4.6-6.20); Red Cell Distribution Width 13.5 % (11.5-14.5); White Blood Count 5.3 K/mm3 (4.5-10.0)
[2021-12-17 11:30] LABS: Alanine Aminotransferase 19 U/L (6-50); Albumin Level 3.1 g/dL (3.5-5.1); Alkaline Phosphatase 48 U/L (38-126); Anion Gap 5 mmol/L (8-16); Aspartate Amino Transferase 26 U/L (17-59); Bilirubin,Total 0.7 mg/dL (0.2-1.3); Blood Urea Nitrogen 46 mg/dL (9-20); Calcium 7.7 mg/dL (8.4-10.2); Carbon Dioxide 27 mmol/L (22-30); Chloride 95 mmol/L (98-107); Estimated CRCL calculation 76 ml/min; Estimated Glomerular Filt Rate > 60; Glucose 123 mg/dL (65-110); Magnesium 2.5 mg/dL (1.6-2.3); Potassium 3.5 mmol/L (3.4-5.0); Sodium 127 mmol/L (137-145)
[2021-12-17 17:28] LABS: Partial Thromboplastin Time 94.8 SECONDS (22.3-36.8)
--- NOTE | 2021-12-17 17:44 | PM.IMPN ---
Progress Note: A&P Assessment and Plan (1) Pulmonary embolism: Code(s): I26.99 - Other pulmonary embolism without acute cor pulmonale Status: Acute Assessment and Plan: patient has been started on heparin drip will need anticoagulation going home continue to monitor echocardiogram noted, no significant right heart strain 12/17/2021 interval history: patient is a 46-year-old male with history of sarcoidosis presented with shortness of breath is found to have bilateral pulmonary emboli large clot burden and being started on heparin drip, is feeling little better not as short of breath as when he arrived, will continue heparin 1 more day and will switch her over to Eliquis tomorrow and possibly discharge the patient, patient seen by oncologist in Hematology suspect unprovoked pulmonary emboli will need further workup with outpatient. (2) Erythrocytosis: Code(s): D75.1 - Secondary polycythemia Status: Acute Assessment and Plan: continue to monitor Hematology-Oncology consult follow-up in outpatient setting Monitor (3) Epigastric abdominal pain: Code(s): R10.13 - Epigastric pain Status: Acute Assessment and Plan: Improved (4) Asthma: Code(s): J45.909 - Unspecified asthma, uncomplicated Status: Acute Assessment and Plan: continue home meds nebulizer treatments q.6 hours Patient does have a wheeze, will start on low-dose steroid Subjective Date/time seen: 12/17/21 17:44 12/17/2021 interval history: patient is a 46-year-old male with history of sarcoidosis presented with shortness of breath is found to have bilateral pulmonary emboli large clot burden and being started on heparin drip, is feeling little better not as short of breath as when he arrived, will continue heparin 1 more day and will switch her over to Eliquis tomorrow and possibly discharge the patient, patient seen by oncologist in Hematology suspect unprovoked pulmonary emboli will need further workup with outpatient. Review of Systems Review of Systems: Epigastric pain, shortness of breath. Constitutional: Constitutional: Denies body ache(s), Denies chills, Denies fatigue, Denies fever(s), Denies malaise, Denies night sweats and Denies weakness Exam Narrative: Patient is comfortable, NAD HEENT: eyes are clear and none icteric LUNGS: normal respiratory ABD: not distended Lower extremities: no edema SKIN: nonjaundiced Neuro: grossly intact. Objective Data Vital Signs Vital Signs: Vital Signs - 24 hr 12/16/21 18:00 12/16/21 19:31 12/16/21 20:00 Temperature 99.3 F Pulse Rate 95 93 93 Respiratory Rate 28 H 28 H Blood Pressure 128/79 Pulse Oximetry 93 93 Oxygen Delivery Nasal Cannula Oxygen Flow Rate 3 12/16/21 20:00 12/16/21 20:50 12/16/21 20:54 Temperature Pulse Rate 82 97 97 Respiratory Rate 22 H Blood Pressure Pulse Oximetry 94 Oxygen Delivery Nasal Cannula Oxygen Flow Rate 3 12/16/21 22:51 12/16/21 22:00 12/17/21 00:00 Temperature 99.5 F Pulse Rate 73 94 88 Respiratory Rate 18 Blood Pressure 132/83 Pulse Oximetry 95 Oxygen Delivery Oxygen Flow Rate 12/17/21 00:00 12/17/21 02:00 12/17/21 02:35 Temperature Pulse Rate 88 80 95 Respiratory Rate 18 28 H Blood Pressure Pulse Oximetry 95 Oxygen Delivery Nasal Cannula Oxygen Flow Rate 3 12/17/21 02:42 12/17/21 04:00 12/17/21 04:00 Temperature Pulse Rate 91 84 84 Respiratory Rate 26 H 26 H Blood Pressure Pulse Oximetry 95 Oxygen Delivery Nasal Cannula Oxygen Flow Rate 3 12/17/21 04:00 12/17/21 06:00 12/17/21 08:00 Temperature 97.4 F L 99.4 F Pulse Rate 94 90 90 Respiratory Rate 18 16 Blood Pressure 144/86 H 133/79 Pulse Oximetry 97 95 Oxygen Delivery Oxygen Flow Rate 12/17/21 08:00 12/17/21 09:04 12/17/21 09:12 Temperature Pulse Rate 83 85 95 Respira
[2021-12-17 19:38] LABS: Erythropoietin (EPO) 3.8 mIU/mL (2.6-18.5)
[2021-12-17] MEDS: ZOLPIDEM TARTRATE (*CRX) 5 MG TABLET PO (20:59)
--- NOTE | 2021-12-17 22:18 | PC.NURSE ---
This patient, Brian Davey, was transferred to [rm [id number] ] on 12/17/21 at 2219. Personal belongings sent with patient. Report given to [ ]. Appropriate documentation sent with patient. report given to ileana ward on .
[2021-12-17 23:31] LABS: Partial Thromboplastin Time 85.5 SECONDS (22.3-36.8)
[2021-12-17] MEDS: HEPARIN SOD/D5W 100 UNITS/ML 25,000 UNITS/250 ML BAG 18 UNITS IV CONT (23:41)
[2021-12-18] VITALS (27 sets, daily range): BP systolic 124–146; BP diastolic 72–85; PULSE 48–80; RESP 12–21; TEMP 35.8–36.7; O2SAT 93–99
[2021-12-18] MEDS: IPRATROPIUM BR 0.02% INH SOLN 0.5 MG/2.5 ML VIAL INHALATION ×4 (02:49→20:09)
[2021-12-18] MEDS: ALBUTEROL SULFATE NEB 2.5 MG/3 ML INH INHALATION ×4 (02:49→20:09)
[2021-12-18 05:38] LABS: Basophils Percent Auto 0.5 % (0.2-1.2); Eosinophils Percent Auto 0.5 % (0-4.4); Hematocrit 42.8 % (42.0-52.0); Hemoglobin 13.7 g/dL (14.0-18.0); Immature Granulocyte Absolute 0.02 K/mm3 (0.00-0.031); Immature Granulocyte Percent A 0.5 % (0-0.5); Lymphocytes Absolute Auto 1.01 K/mm3 (0.9-3.2); Mean Corpuscular Hemoglobin 28.7 pg (26-34); Mean Corpuscular Volume 89.5 fl (80-100); Mean Platelet Volume 12.4 fl (7.4-10.4); Monocytes Absolute Auto 2.6 K/mm3 (0.1-0.6); Monocytes Percent Auto 66.8 % (2.6-8.5); Neutrophils Absolute Auto 0.2 K/mm3 (1.3-6.7); Neutrophils Percent Auto 5.7 % (45.5-73.1); Platelet Count Result 120 k/mm3 (150-375); Red Blood Count 4.78 M/mm3 (4.6-6.20); Red Cell Distribution Width 13.1 % (11.5-14.5); White Blood Count 3.9 K/mm3 (4.5-10.0)
[2021-12-18 05:56] LABS: Partial Thromboplastin Time 81.2 SECONDS (22.3-36.8)
[2021-12-18 06:03] LABS: Alanine Aminotransferase 29 U/L (6-50); Albumin Level 3.4 g/dL (3.5-5.1); Alkaline Phosphatase 52 U/L (38-126); Anion Gap 5 mmol/L (8-16); Aspartate Amino Transferase 34 U/L (17-59); Bilirubin,Total 0.5 mg/dL (0.2-1.3); Blood Urea Nitrogen 34 mg/dL (9-20); Calcium 8.1 mg/dL (8.4-10.2); Carbon Dioxide 33 mmol/L (22-30); Chloride 96 mmol/L (98-107); Estimated CRCL calculation 82 ml/min; Estimated Glomerular Filt Rate > 60; Glucose 131 mg/dL (65-110); Potassium 3.5 mmol/L (3.4-5.0); Sodium 134 mmol/L (137-145)
[2021-12-18] MEDS: LACTATED RINGERS 1,000 ML 75 ML IV CONT ×2 (07:16→19:04)
[2021-12-18 07:31] LABS: Platelet Estimate Adequate (Adequate)
[2021-12-18 07:32] LABS: Atypical Lymphocytes Present
--- NOTE | 2021-12-18 08:22 | PC.NURSE ---
0700-rate of Heparin drip 16 cc/la=9991 at start of shift- documentation changed to 16 cc/hr on MAR
[2021-12-18] MEDS: predniSONE 20 MG TABLET 40 MG PO (08:43)
[2021-12-18] MEDS: atenoloL 50 MG TABLET PO (08:44)
[2021-12-18] MEDS: CHLORTHALIDONE 25 MG TABLET PO (08:44)
[2021-12-18] MEDS: FLUTICASONE/SALMETEROL 115-21 MCG INHALER 1 PUFF 2 PUFF INHALATION ×2 (10:30→20:09)
[2021-12-18] MEDS: APIXABAN 5 MG TABLET 10 MG PO ×2 (11:50→21:04)
--- NOTE | 2021-12-18 14:19 | PM.IMPN ---
Progress Note: A&P Assessment and Plan (1) Pulmonary embolism: Code(s): I26.99 - Other pulmonary embolism without acute cor pulmonale Status: Acute Assessment and Plan: patient has been started on heparin drip will need anticoagulation going home continue to monitor echocardiogram noted, no significant right heart strain 12/17/2021 interval history: patient is a 46-year-old male with history of sarcoidosis presented with shortness of breath is found to have bilateral pulmonary emboli large clot burden and being started on heparin drip, is feeling little better not as short of breath as when he arrived, will continue heparin 1 more day and will switch her over to Eliquis tomorrow and possibly discharge the patient, patient seen by oncologist in Hematology suspect unprovoked pulmonary emboli will need further workup with outpatient. 12/18/2021 interval history: patient is a 46-year-old male with history of sarcoidosis presented with shortness of breath is found to have bilateral pulmonary emboli large clot burden and being started on heparin drip, is feeling little better not as short of breath as when he arrived, today will stop heparin drip and start the patient on Eliquis, patient is having coughing and appears tired and fatigued, will monitor patient today have PT OT evaluate the patient and reassess tomorrow, patient seen by oncologist in Hematology suspect unprovoked pulmonary emboli will need further workup with outpatient. (2) Erythrocytosis: Code(s): D75.1 - Secondary polycythemia Status: Acute Assessment and Plan: continue to monitor Hematology-Oncology consult follow-up in outpatient setting Monitor (3) Epigastric abdominal pain: Code(s): R10.13 - Epigastric pain Status: Acute Assessment and Plan: Improved (4) Asthma: Code(s): J45.909 - Unspecified asthma, uncomplicated Status: Acute Assessment and Plan: continue home meds nebulizer treatments q.6 hours Patient does have a wheeze, will start on low-dose steroid Subjective Date/time seen: 12/18/21 14:19 12/18/2021 interval history: patient is a 46-year-old male with history of sarcoidosis presented with shortness of breath is found to have bilateral pulmonary emboli large clot burden and being started on heparin drip, is feeling little better not as short of breath as when he arrived, today will stop heparin drip and start the patient on Eliquis, patient is having coughing and appears tired and fatigued, will monitor patient today have PT OT evaluate the patient and reassess tomorrow, patient seen by oncologist in Hematology suspect unprovoked pulmonary emboli will need further workup with outpatient. Exam Narrative: Patient is comfortable, NAD HEENT: eyes are clear and none icteric LUNGS: normal respiratory ABD: not distended Lower extremities: no edema SKIN: nonjaundiced Neuro: grossly intact. Const: General: comfortable, no acute distress, well developed, alert and awake Objective Data Vital Signs Vital Signs: Vital Signs - 24 hr 12/17/21 15:05 12/17/21 15:16 12/17/21 16:00 Temperature 98.8 F Pulse Rate 63 66 69 Respiratory Rate 20 20 24 H Blood Pressure 117/82 Pulse Oximetry 97 Oxygen Delivery Oxygen Flow Rate 12/17/21 16:00 12/17/21 18:00 12/17/21 16:00 Temperature Pulse Rate 82 78 76 Respiratory Rate 20 Blood Pressure Pulse Oximetry 97 Oxygen Delivery Nasal Cannula Oxygen Flow Rate 2 12/17/21 19:55 12/17/21 20:44 12/17/21 20:53 Temperature 98.4 F Pulse Rate 73 67 65 Respiratory Rate 25 H 20 20 Blood Pressure 137/49 L Pulse Oximetry 99 Oxygen Delivery Oxygen Flow Rate 12/17/21 20:54 12/17/21 20:00 12/17/21 20:00 Temperature Pulse Rate 67 71 71 Respiratory Rate 20 Blood Pressure Pulse Oximetry 96 96 Oxygen Delivery Nasal Cannula N
[2021-12-18] MEDS: traMADol HCL (*CRX) 50 MG TABLET PO (21:05)
[2021-12-18] MEDS: ZOLPIDEM TARTRATE (*CRX) 5 MG TABLET PO (21:05)
[2021-12-19] VITALS (23 sets, daily range): BP systolic 131–154; BP diastolic 80–93; PULSE 57–102; RESP 18–22; TEMP 35.9–36.7; O2SAT 87–98
[2021-12-19] MEDS: ALBUTEROL SULFATE NEB 2.5 MG/3 ML INH INHALATION ×3 (02:14→14:57)
[2021-12-19] MEDS: IPRATROPIUM BR 0.02% INH SOLN 0.5 MG/2.5 ML VIAL INHALATION ×3 (02:14→14:58)
[2021-12-19 05:00] LABS: Basophils Percent Auto 0.5 % (0.2-1.2); Eosinophils Percent Auto 0.9 % (0-4.4); Hematocrit 42.6 % (42.0-52.0); Hemoglobin 13.5 g/dL (14.0-18.0); Immature Granulocyte Absolute 0.04 K/mm3 (0.00-0.031); Immature Granulocyte Percent A 0.9 % (0-0.5); Lymphocytes Absolute Auto 1.48 K/mm3 (0.9-3.2); Lymphocytes Percent Auto 34.7 % (18.3-44.2); Mean Corpuscular HGB Conc 31.7 g/dl (32-36); Mean Corpuscular Hemoglobin 28.6 pg (26-34); Mean Corpuscular Volume 90.3 fl (80-100); Mean Platelet Volume 11.7 fl (7.4-10.4); Monocytes Absolute Auto 2.4 K/mm3 (0.1-0.6); Monocytes Percent Auto 55.5 % (2.6-8.5); Neutrophils Absolute Auto 0.3 K/mm3 (1.3-6.7); Neutrophils Percent Auto 7.5 % (45.5-73.1); Nucleated Red Blood Cells Perc 0.5 % (0.0-0.2); Platelet Count Result 144 k/mm3 (150-375); Red Blood Count 4.72 M/mm3 (4.6-6.20); Red Cell Distribution Width 13.1 % (11.5-14.5); White Blood Count 4.3 K/mm3 (4.5-10.0)
[2021-12-19 05:11] LABS: Alanine Aminotransferase 52 U/L (6-50); Albumin Level 3.4 g/dL (3.5-5.1); Alkaline Phosphatase 50 U/L (38-126); Anion Gap 2 mmol/L (8-16); Aspartate Amino Transferase 52 U/L (17-59); Bilirubin,Total 0.4 mg/dL (0.2-1.3); Blood Urea Nitrogen 24 mg/dL (9-20); Calcium 8.7 mg/dL (8.4-10.2); Carbon Dioxide 32 mmol/L (22-30); Chloride 101 mmol/L (98-107); Estimated CRCL calculation 96 ml/min; Estimated Glomerular Filt Rate > 60; Glucose 110 mg/dL (65-110); Potassium 3.9 mmol/L (3.4-5.0); Sodium 135 mmol/L (137-145)
[2021-12-19] MEDS: LACTATED RINGERS 1,000 ML 75 ML IV CONT (05:28)
[2021-12-19] MEDS: traMADol HCL (*CRX) 50 MG TABLET PO (05:28)
[2021-12-19] MEDS: FLUTICASONE/SALMETEROL 115-21 MCG INHALER 1 PUFF 2 PUFF INHALATION (08:21)
[2021-12-19] MEDS: predniSONE 20 MG TABLET 40 MG PO (09:09)
[2021-12-19] MEDS: APIXABAN 5 MG TABLET 10 MG PO (09:09)
[2021-12-19] MEDS: atenoloL 50 MG TABLET PO (09:09)
[2021-12-19] MEDS: CHLORTHALIDONE 25 MG TABLET PO (09:10)
[2021-12-19] MEDS: ACETAMINOPHEN 325 MG TABLET 650 MG PO (09:46)
--- NOTE | 2021-12-19 12:47 | PCRCNOTE ---
Home o2 eval completed. No home o2 needed. RN notified.
--- NOTE | 2021-12-19 12:58 | HOMEO2EVAL ---
Evaluation was performed at [facility] Home Oxygen Evaluation RC: Home Oxygen (O2) Evaluation Start: 12/18/21 19:14 Freq: ONCE Status: Active Protocol: RPE Activity Type Activity Date Activity User E-sign Co-sign Detail Recorded Client Recorded Date Recorded By Document 12/19/21 11:50 GERALD [email or web address] 12/19/21 12:44 GERALD Document 12/19/21 11:51 GERALD [email or web address] 12/19/21 12:58 GERALD Document 12/19/21 11:55 GERALD [email or web address] 12/19/21 12:44 GERALD Document 12/19/21 12:05 GERALD [email or web address] 12/19/21 12:44 GERALD 12/19/21 12/19/21 12/19/21 11:50 11:51 11:55 Home O2 Evaluation Test Phase Resting Resting Exercise Oxygen Delivery Room Air Nasal Cannula Nasal Cannula Oxygen Flow Rate (L/min) 2 2 Pulse Oximetry (90-100 %) 87 L 93 93 Pulse Rate (60-100 beats/min) 74 102 H Home Oxygen Evaluation Comments Pt requires 2 L home o2 Treatment Charges O2 Evaluation - Inpatient 12/19/21 12:05 Home O2 Evaluation Test Phase Resting Oxygen Delivery Nasal Cannula Oxygen Flow Rate (L/min) 2 Pulse Oximetry (90-100 %) 93 Pulse Rate (60-100 beats/min) 82 Home Oxygen Evaluation Comments Treatment Charges
--- NOTE | 2021-12-19 12:58 | PCRCNOTE ---
Will arrange Home O2 with [facility]
--- NOTE | 2021-12-19 15:41 | PM.DS ---
DS: Admitting Diagnosis Discharge Date 12/19/2021 Admitting Diagnosis epigastric pain DS: Discharge Diagnosis Discharge Diagnosis (1) Pulmonary embolism: Code(s): I26.99 - Other pulmonary embolism without acute cor pulmonale Status: Acute Assessment and Plan: patient has been started on heparin drip will need anticoagulation going home continue to monitor echocardiogram noted, no significant right heart strain 12/17/2021 interval history: patient is a 46-year-old male with history of sarcoidosis presented with shortness of breath is found to have bilateral pulmonary emboli large clot burden and being started on heparin drip, is feeling little better not as short of breath as when he arrived, will continue heparin 1 more day and will switch her over to Eliquis tomorrow and possibly discharge the patient, patient seen by oncologist in Hematology suspect unprovoked pulmonary emboli will need further workup with outpatient. 12/18/2021 interval history: patient is a 46-year-old male with history of sarcoidosis presented with shortness of breath is found to have bilateral pulmonary emboli large clot burden and being started on heparin drip, is feeling little better not as short of breath as when he arrived, today will stop heparin drip and start the patient on Eliquis, patient is having coughing and appears tired and fatigued, will monitor patient today have PT OT evaluate the patient and reassess tomorrow, patient seen by oncologist in Hematology suspect unprovoked pulmonary emboli will need further workup with outpatient. (2) Erythrocytosis: Code(s): D75.1 - Secondary polycythemia Status: Acute Assessment and Plan: continue to monitor Hematology-Oncology consult follow-up in outpatient setting Monitor (3) Epigastric abdominal pain: Code(s): R10.13 - Epigastric pain Status: Acute Assessment and Plan: Improved (4) Asthma: Code(s): J45.909 - Unspecified asthma, uncomplicated Status: Acute Assessment and Plan: continue home meds nebulizer treatments q.6 hours Patient does have a wheeze, will start on low-dose steroid DS: Summary Hospital Course Reason for hospitalization: Chief Complaint: ?epigastric pain Narrative: ?this is a 46-year-old male with past medical history significant for psycho it in remission, asthma. patient presents to the emergency room due to pain with deep inspiration and pain in the epigastric area worse with deep inspiration.? Patient denies any cough, any hematemesis, any hemoptysis, no nausea, no vomiting, no diarrhea, has had some shortness of breath, no fevers, no rigors, no chills ? no calves pain,patient has been feeling like this for the last 2 days or so he initially attributed to eating some takeout food at his job. preliminary workup was significant for CT angiogram of the chest with acute pulmonary embolism, is CT of abdomen and pelvis show no acute abnormality,? lab work was significant for hemoglobin of 19 hematocrit 59, BUN 37 creatinine 1.8 brain atretic peptide was 2240. patient is being admitted for further evaluation, management and treatment. Hospital Course: patient is a 46-year-old male with history of? sarcoidosis presented with shortness of breath is found to have bilateral pulmonary emboli large clot burden and being started on heparin drip, is feeling little better not as short of breath as when he arrived, today will stop heparin drip and start the patient on Eliquis, patient is having coughing and appears tired and fatigued, will monitor patient today have PT OT evaluate the patient and reassess tomorrow, patient seen by oncologist in Hematology suspect unprovoked pulmonary emboli will need further workup with outpatient. today patient states feeling better not as short of breath, comfortable going home and will follow-up with his primary care and oncologist as
[2021-12-22 15:19] LABS: CALR Exon 9 Mutation Not Detected (Not Detected); CSF3R Exon 14/17 Mutation Not Detected (Not Detected); Clinical Indication Not Given; JAK2 Exon 12 Mutation Not Detected (Not Detected); JAK2 V617F Mutation Not Detected (Not Detected); MPL Exon 10 Mutation Not Detected (Not Detected); Specimen Source Blood
== END 2021-12-19 17:28 | disposition home or self-care (01) | DRG 176 ==
LOC: ANHED 19:50 → ANHIMU 23:23
PROVIDERS: Chiropractor; Internal Medicine; Internal Medicine Hematology & Oncology; Admitting Provider Internal Medicine; Emergency Provider Emergency Medicine; Visit Provider Family Medicine
DX: I26.99 Other pulmonary embolism without acute cor pulmonale (principal); Z20.822 Contact with and (suspected) exposure to COVID-19; D75.1 Secondary polycythemia; R10.13 Epigastric pain; J45.909 Unspecified asthma, uncomplicated; Z79.899 Other long term (current) drug therapy; Z85.89 Personal history of malignant neoplasm of other organs and systems
CPT/HCPCS: 36415; 71045; 71275; 74174; 80048; 80053; 81219; 81270; 81402; 81403; 81479; 82607; 82668; 82746; 83615; 83735; 83880; 84484; 85025; 85027; 85380; 85610; 85730; 93005; 93306; 94618; 94640; 96365; 96366; 96367; 96375; 97165; 99285; A9270; C9803; G0378; J1644; J2920; J2930; J3475; J7120; J7512; Q9967; U0003; U0005